=== PATIENT | male | born 1990 ===

== ENCOUNTER 2018-04-04 12:01 | Inpatient (IN) | payer MEDICAID ==
[~2018-04-04] VITALS: Ht 160 cm; Wt 54.4 kg
[2018-04-04 13:21] LABS: AMPHETAMINE QUAL UR NONE DETECTED (See below)
[2018-04-04 13:36] LABS: BASOPHIL % 0.4 % (0-2); PLATELET COUNT 307 x10^3mcL (130-400)
[2018-04-04 14:02] LABS: CALCIUM 9.2 mg/dL (8.5-10.1); CHLORIDE SERUM 104 mmol/L (98-107); CREATININE SERUM 1.1 mg/dL (0.7-1.3); GFR1 > 60 mL/min; GLUCOSE SERUM 103 mg/dL (74-106); POTASSIUM SERUM 3.9 mmol/L (3.5-5.1); SODIUM SERUM 140 mmol/L (136-145)
[2018-04-04 14:06] LABS: ALBUMIN 4.3 g/dL (3.4-5.0); ALKALINE PHOSPHATASE 59 U/L (46-116); ALT/SGPT 27 U/L (16-63); AST/SGOT 40 U/L (15-37); BILIRUBIN TOTAL 1.92 mg/dL (0.20-1.00); TOTAL PROTEIN, SERUM 7.4 g/dL (6.4-8.2)
[2018-04-04 15:41] LABS: MAGNESIUM 1.9 mg/dL (1.8-2.4); PHOSPHOROUS 3.2 mg/dL (2.5-4.9)
[2018-04-04 15:44] LABS: CHOLESTEROL/HDL RATIO 4.1
[2018-04-04 15:47] LABS: T3 TOTAL 1.07 ng/mL
[2018-04-04 16:55] LABS: FREE T4 1.22 ng/dL (0.76-1.46); FREE THYROXINE INDEX 2.6 ug/dL (1.4-4.5); T4(THYROXINE) 7.2 ug/dL (4.7-13.3)
[2018-04-04 20:33] VITALS: BP 139/74
[2018-04-04 20:41] VITALS: Ht 160 cm; Wt 54.4 kg
[2018-04-05 06:00] VITALS: BP 127/73
[2018-04-05 06:08] LABS: BASOPHIL % 0.6 % (0-2); PLATELET COUNT 274 x10^3mcL (130-400); RED CELL DISTRIBUTION WIDTH 12.6 % (11.5-14.5)
[2018-04-05 06:24] LABS: AMYLASE 68 U/L (25-115); CALCIUM 8.5 mg/dL (8.5-10.1); CARBON DIOXIDE 24.5 mmol/L (21-32); CHLORIDE SERUM 106 mmol/L (98-107); CREATININE SERUM 0.9 mg/dL (0.7-1.3); GFR1 > 60 mL/min; GLUCOSE SERUM 93 mg/dL (74-106); MAGNESIUM 1.9 mg/dL (1.8-2.4); PHOSPHOROUS 3.4 mg/dL (2.5-4.9); POTASSIUM SERUM 3.7 mmol/L (3.5-5.1); SODIUM SERUM 141 mmol/L (136-145)
[2018-04-05 09:02] VITALS: BP 131/74
[2018-04-05 11:41] LABS: UA SPECIFIC GRAVITY 1.025 (1.005-1.035); microscopic required? YES; urine erythrocyte NEGATIVE (NEGATIVE)
[2018-04-05 14:24] VITALS: BP 134/91
[2018-04-05 21:09] VITALS: BP 150/94
[2018-04-06 05:48] VITALS: BP 134/71
[2018-04-06 09:35] VITALS: BP 132/89
[2018-04-06 12:57] VITALS: BP 136/86
[2018-04-06 17:29] VITALS: BP 129/76
[2018-04-06 17:32] VITALS: BP 129/76
== END 2018-04-06 18:35 | DRG 463 ==
LOC: ED 12:01 → DU 14:50
PROVIDERS: Emergency Medicine; Internal Medicine
DX: N39.0 Urinary tract infection, site not specified (principal); R45.851 Suicidal ideations; R45.850 Homicidal ideations; F31.2 Bipolar disorder, current episode manic severe with psychotic features; D50.9 Iron deficiency anemia, unspecified; F12.10 Cannabis abuse, uncomplicated; F17.290 Nicotine dependence, other tobacco product, uncomplicated; F19.10 Other psychoactive substance abuse, uncomplicated; Z68.23 Body mass index [BMI] 23.0-23.9, adult
CPT/HCPCS: 83880; 84439; 87491; 87591; G0480; J0696; J1630; J2060; J2270; J7030; J7060; Q0092